=== PATIENT | female | born 1980 | race Two or more races ===

== ENCOUNTER 2019-08-13 15:14 | Emergency (ER) | payer BC, OTHER ==
[~2019-08-13] VITALS: Ht 177.8 cm; Wt 68.9 kg
--- NOTE | 2019-08-13 16:23 | NUR ---
Patient discharged to home in stable condition. Written and verbal after care instructions given. Patient verbalizes understanding of instruction.
[2019-08-13 16:24] VITALS: BP 115/78
== END 2019-08-13 16:27 | disposition home or self-care (01) ==
LOC: ER 15:15
DX: R50.9 Fever, unspecified (principal); R51 Headache; R00.0 Tachycardia, unspecified; D80.3 Selective deficiency of immunoglobulin G [IgG] subclasses; Z60.2 Problems related to living alone; Z20.828 Contact with and (suspected) exposure to other viral communicable diseases
CPT/HCPCS: 36415

== ENCOUNTER 2019-12-02 10:02 | Emergency (ER) | payer OTHER ==
[~2019-12-02] VITALS: Ht 180.3 cm; Wt 68.9 kg
[2019-12-02 10:13] VITALS: BP 125/82
--- NOTE | 2019-12-02 10:36 | NUR ---
COVID SWAB AND RAPID INLUENZA OBTAINED AND SENT TO LAB.
--- NOTE | 2019-12-02 10:44 | NUR ---
Patient discharged to home in stable condition. Written and verbal after care instructions given. Patient verbalizes understanding of instruction.
== END 2019-12-02 10:45 | disposition home or self-care (01) ==
LOC: ER 10:02
DX: M79.10 Myalgia, unspecified site (principal); Z20.828 Contact with and (suspected) exposure to other viral communicable diseases
CPT/HCPCS: 87426; 87804; 99283; C9803; U0003